=== PATIENT | female | born 2000 | race Hispanic/Latino ===

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

== ENCOUNTER 2022-05-02 17:54 | Emergency (ER) | payer OTHER, MEDICAID ==
[~2022-05-02] VITALS: Ht 160 cm; Wt 73.9 kg
[2022-05-02 17:55] VITALS: BP 135/64
[2022-05-02] MEDS ORDERED: CYCL5TAB PO (18:09)
== END 2022-05-02 18:54 | disposition home or self-care (01) ==
LOC: EDH 17:54
DX: Z04.1 Encounter for examination and observation following transport accident (principal); M62.838 Other muscle spasm; Z98.890 Other specified postprocedural states; V49.69XA Unspecified car occupant injured in collision with other motor vehicles in traffic accident, initial encounter; Y93.89 Activity, other specified; Y92.413 State road as the place of occurrence of the external cause; Y99.8 Other external cause status

== ENCOUNTER 2024-04-23 23:11 | Emergency (ER) | payer MEDICAID ==
[~2024-04-23] VITALS: Ht 160 cm; Wt 87.5 kg
[~2024-04-23 23:11] MED LIST: CYCL5TAB3 PO
--- NOTE | 2024-04-23 23:24 | ERN ---
ED Note History of Present Illness Stated Complaint: VAGINAL BLEEDING Chief Complaint: Vaginal Bleeding Time Seen by MD: 23:12 Dictation: PATIENT IS A 23-YEAR-OLD FEMALE TODAY COMING IN COMPLAINTS OF SPOTTING PAINLESSLY ONSET 3-4 DAYS PRIOR TO ARRIVAL.. SHE STATES THE BLEEDING HAS GOTTEN WORSE OVER THE LAST SEVERAL DAYS. SHE STATES SHE IS 11 WEEKS FOUR DAYS, A2, PATIENT HAD DR. RAMEY ON THURSDAY AND HE EXAMINED HER TOLD HER THAT IF IT GOT WORSE TO GO TO THE EMERGENCY ROOM. Allergies: Coded Allergies: No Known Allergies (Unverified Allergy, Unknown, 05/02/22) Home Meds Active Scripts Cyclobenzaprine HCl (Cyclobenzaprine HCl) 5 Mg Tablet, 5 MG PO every 8 hours for spasm pain for 7 Days, #21 TAB Prov:MONTSE MCGUIRE INVENTORY MANAGER 05/02/22 Past Medical History Past Medical History: No Pertinent History Surgical History: LMP: Dec 31, 2023 : 4 Para: 1 Aborts: 2 RN Note Reviewed/Agreed w/PFSH: Yes Review of System Dictation CONSTITUTIONAL: NEGATIVE EXCEPT FOR HPI HEAD/FACE: NEGATIVE EXCEPT FOR HPI EENT: NEGATIVE EXCEPT FOR HPI RESPIRATORY: NEGATIVE EXCEPT FOR HPI GASTROINTESTINAL/ABDOMINAL: NEGATIVE EXCEPT FOR HPI GENITOURINARY: NEGATIVE EXCEPT FOR HPI PAINLESS VAGINAL BLEEDING MUSCULOSKELETAL: NEGATIVE EXCEPT FOR HPI INTEGUMENTARY: NEGATIVE EXCEPT FOR HPI NEUROLOGICAL/PSYCH: NEGATIVE EXCEPT FOR HPI HEMATOLOGIC/LYMPHATIC: NEGATIVE EXCEPT FOR HPI ALL SYSTEMS NEGATIVE, EXCEPT NOTED ABOVE. 13 POINT REVIEW OF SYSTEMS ASSESSED AND ALL NEGATIVE EXCEPT FOR ABOVE. Initial Vital Sign VS Vital Signs Date Time Temp Pulse Resp B/P (MAP) Pulse Ox O2 Delivery O2 Flow Rate FiO2 04/23/24 23:12 99.0 79 16 138/86 99 Room Air 04/23/24 23:35 0 21 Physical Exam Dictation VITAL SIGNS REVIEWED 0/10 PAIN GENERAL APPEARANCE: ALERT, ORIENTED X 3, NO ACUTE DISTRESS, WELL DEVELOPED, NOURISHED. HEAD AND FACE: NON-TRAUMATIC. EYES: PERRL, PINK CONJUNCTIVAS, EYELID NO TRAUMA, ANTERIOR CHAMBER WITH ARCUS SENILIS. EARS: PINNAS INTACT AND NO SIGNS OF TRAUMA OR ERYTHEMA EAR CANALS CLEAR AND NO DISCHARGE TM NO ERYTHEMA NOSE: NO DISCHARGE, NO BLEEDING. OROPHARYNX: MOUTH NORMAL, TONGUE PINK, PHARYNX CLEAR,NO ERYTHEMA, TONSILS NO EXUDATES, NO ABSCESSES NOTED, MUCOUS MEMBRANE MOIST NECK: SUPPLE, NON-TENDER, NO THYROMEGALY, NO MASSES, NO JVD, NO BRUITS BREAST:DEFERRED CHEST:NO TENDERNESS, NO CREPITUS, NO PARADOXICAL MOVEMENT, NO RETRACTIONS LUNGS:CLEAR, WELL-VENTILATED, SYMMETRIC, NO RALES, NO WHEEZING, NO RHONCHI, NO STRIDOR, GOOD BREATH SOUNDS BILATERALLY HEART: REGULAR RATE, REGULAR RHYTHM, NO MURMUR, NO GALLOPS VASCULAR: NO PERIPHERAL EDEMA, ABDOMEN: SOFT, POSITIVE BOWEL SOUNDS, NONDISTENDED, NO GUARDING, NONTENDER, NO REBOUND, NO MASSES NO HEPATOMEGALY, NO SPLENOMEGALY, NO DAWN'S SIGN, NO HERNIAS. RECTAL: DEFERRED GENITAL: DEFERRED NEUROLOGICAL: NORMAL SPEECH, MOTOR FUNCTION INTACT, SENSORY FUNCTION INTACT MUSCULOSKELETAL: NECK NONTENDER, FULL RANGE OF MOTION, BACK NONTENDER, FULL RANGE OF MOTION, EXTREMITIES: NONTENDER, FULL RANGE OF MOTION SKIN: COLOR PINK, DRY, NO TURGOR, NO RASH, NO LACERATIONS, NO ABRASIONS, NO CONTUSIONS. LYMPHATIC: DEFERRED Results (Laboratory/Radiology) Laboratory/Radiology Laboratory Tests Test 04/23/24 23:34 White Blood Count 11.1 K/uL (4.8-10.8) H Red Blood Count 4.27 MIL/uL (4.00-5.50) Hemoglobin 12.6 g/dL (12.0-16.0) Hematocrit 36.8 % (36-48) Mean Corpuscular Volume 86.2 fL (79-99) Mean Corpuscular Hemoglobin 29.5 pg (27.0-33.0) Mean Corpuscular Hemoglobin Concent 34.2 g/dL (32.0-36.0) Red Cell Distribution Width 12.4 % (11.0-15.5) Platelet Count 197 K/uL (130-400) Mean Platelet Volume 11.4 fL (7.5-10.5) H Immature Granulocyte % (Auto) 0.4 % (0-1) Neutrophils (%) (Auto) 58.4 % (40.0-77.0) Lymphocytes (%) (Auto) 33.9 % (21.0-51.0) Monocytes (%) (Auto) 5.7 % (3.0-13.0) Eosinophils (%) (Auto) 1.3 % (0.0-8.0) Basophils (%) (Auto) 0.3 % (0.0-5.0) Neutrophils # (Auto) 6.5 K/uL (1.8-7.7) Lymphocytes # (Auto) 3.8 K/uL (1.0-4.8) Monocytes # (Auto) 0.6 K/uL (0.1-1.0) Eosinophils # (Auto) 0.14 K/uL (0.00-0.70) Basophils # (Auto) 0.03 K/uL (0.00-0.20) Absolute Immature Granulocyte (auto 0.04 K/uL (0-1) Nucleated Red Blood Cells 0.0 % (0.0-0.19) OB ULTRASOUND DEMONSTRATES IUP 11 WEEKS FIVE DAYS HEART RATE 154 POSITIVE FOR SUBCHORIONIC BLEED. Labs Reviewed?: Yes ED Course ED Course Orders Procedure Category Date Status Time Vital Signs Per CPOE 04/23/24 Transmitted Routine 23:19 Cbc With Differential LAB 04/23/24 Complete 23:19 Type And Screen BBK 04/23/24 In Process 23:19 Basic Metabolic Panel LAB 04/23/24 In Process 23:19 Hcg,Quantitative LAB 04/23/24 In Process 23:19 Us Ob <14 Weeks US 04/23/24 Taken 23:19 *Nursing CPOE 04/23/24 Transmitted Communication: 23:19 Vital Signs Date Time Temp Pulse Resp B/P (MAP) Pulse Ox O2 Delivery O2 Flow Rate FiO2 04/23/24 23:35 98.8 66 20 125/74 100 Room Air* 0 21 04/23/24 23:12 99.0 79 16 138/86 99 Room Air 0030, DISCUSSED WITH PATIENT PERFORMING A PELVIC PART OF THE WORKUP FOR VAGINAL BLEEDING SHE ELECTED AT THIS TIME TO NOT HAVE A PELVIC PERFORMED SHE AGREED TO PRACTICE PELVIC REST UNTIL SHE SEES DR. RAMEY NEXT WEEK Medical Decision Making MDM MEDICAL DISCHARGE MAKING BASED ON ULTRASOUND AND LABS FOR VAGINAL BLEEDING. PATIENT HAS A VIABLE INTRAUTERINE ELECTED NOT TO HAVE PELVIC EXAM PERFORMED AT THIS TIME. SHE WAS INSTRUCTED ON PELVIC REST AND NO SEX UNTIL CLEARED BY HER DOCTOR THURSDAY. DX & DISP Disposition: Discharge Departure Impression: Primary Impression: Threatened miscarriage in early Condition: Stable Additional Instructions: FOLLOW-UP WITH PRIMARY CARE PROVIDER IN 1 TO 2 DAYS. TAKE MEDICATIONS DIRECTED HERE IN THE EMERGENCY ROOM. OKAY TO CONTINUE HOME MEDICATIONS UNLESS OTHERWISE DISCUSSED DURING YOUR VISIT IN THE EMERGENCY ROOM TODAY. RETURN TO YOUR NEAREST EMERGENCY ROOM IF SYMPTOMS WORSEN OR IF THERE IS NO IMPROVEMENT. CALL 911 IF YOU NEED IMMEDIATE ASSISTANCE. TAKE TYLENL [id number] NEEDED AND IF NO CONTRAINDICATIONS ARE PRESENT. INCREASE ORAL HYDRATION. A WOUND CULTURE OR URINE CULTURE WAS ORDERED HERE IN THE EMERGENCY ROOM DEPARTMENT PLEASE FOLLOW-UP WITH PRIMARY CARE PROVIDER AND ADVISE THEM TO GET REPEAT PORTS FROM OUR FACILITY. IF YOU HAD ANY YUE WRAP/SPLINTS THAT WERE APPLIED HERE, PLEASE DO NOT REMOVE THEM UNTIL YOU SEE YOUR PRIMARY CARE OR SPECIALTY. PELVIC REST AND NO SEX UNTIL CLEARED BY YOUR PIT INSPECTOR DOCTOR NEXT WEEK. Referrals: SELF,REFERRAL (PCP) Time of Disposition: 00:30 I have reviewed the case, and I agree with, Diagnosis and Plan JOSE MARTIN DIETZ NP Apr 23, 2024 23:24
[2024-04-23 23:52] LABS: BASOPHILS # (AUTO) 0.03 K/uL (0.00-0.20); BASOPHILS % (AUTO) 0.3 % (0.0-5.0); EOSINOPHILS # (AUTO) 0.14 K/uL (0.00-0.70); EOSINOPHILS % (AUTO) 1.3 % (0.0-8.0); HEMATOCRIT 36.8 % (36-48); IMMATURE GRANULOCYTE ABSOLUTE 0.04 K/uL (0-1); LYMPHOCYTES # (AUTO) 3.8 K/uL (1.0-4.8); LYMPHOCYTES % (AUTO) 33.9 % (21.0-51.0); MEAN CORPUSCULAR HEMOGLOBIN 29.5 pg (27.0-33.0); MEAN CORPUSCULAR HGB CONC 34.2 g/dL (32.0-36.0); MEAN CORPUSCULAR VOLUME 86.2 fL (79-99); MONOCYTES # (AUTO) 0.6 K/uL (0.1-1.0); MONOCYTES % (AUTO) 5.7 % (3.0-13.0); NEUTROPHILS # (AUTO) 6.5 K/uL (1.8-7.7); NEUTROPHILS % (AUTO) 58.4 % (40.0-77.0); PLATELET COUNT (AUTO) 197 K/uL (130-400); RED BLOOD CELL COUNT(AUTO) 4.27 MIL/uL (4.00-5.50); RED CELL DISTRIBUTION WIDTH 12.4 % (11.0-15.5); WHITE BLOOD COUNT (AUTO) 11.1 K/uL (4.8-10.8)
[2024-04-24 00:33] VITALS: BP 141/74; PULSE 78; RESP 20; TEMP 98.7; O2SAT 100
[2024-04-24 00:50] LABS: CREATININE 0.6 mg/dL (0.5-1.0); POTASSIUM 4.1 mmol/L (3.5-5.1)
--- NOTE | 2024-04-24 00:57 | HMCIMG ---
US OB <14 WEEKS HISTORY: Spotting COMPARISON: None TECHNIQUE: Obstetrical ultrasound study was performed. FINDINGS: The uterus measures 16.1 x 7.3 x 10.1 centimeter. Right ovary measures 3.8 x 2.6 x 3 centimeter. Left ovary measures 3 x 2.3 x 3.1 centimeter. There is single intrauterine gestation with estimated gestational age of 12 weeks and 4 days. heart rate is 155 beats per minute. No fluid is seen in the cul-de-sac. Flow is seen in both ovaries. IMPRESSION: 1. There is single intrauterine gestation with estimated gestational age of 12 weeks and 4 days. heart rate is 155 beats per minute.
== END 2024-04-24 00:39 | disposition home or self-care (01) ==
LOC: EDH 23:11
DX: O20.0 Threatened abortion (principal); Z3A.11 11 weeks gestation of pregnancy
CPT/HCPCS: 36415; 76801; 80048; 84702; 85025; 86850; 86870; 86900; 86901